=== PATIENT | male | born 1985 | race Caucasian/White ===

== ENCOUNTER 2020-02-28 21:52 | Emergency (ER) | payer OTHER ==
--- NOTE | 2020-02-28 22:19 | EDM.PDOC ---
ED HPI GENERAL MEDICAL PROBLEM - General Chief Complaint: Bite:Animal, Insect Stated Complaint: BUG BITE ON RIGHT LEG ABOVE THE KNEE Time Seen by Provider: 02/28/20 21:57 Source of Information: Reports: Patient, RN Notes Reviewed History Limitations: Reports: No Limitations - History of Present Illness INITIAL COMMENTS - FREE TEXT/NARRATIVE: Patient is a 34-year-old male who presents to the ED for evaluation of a bug bite on his right leg. Patient states that he got bitten yesterday, had a little bit of redness with surrounding inflammation at that time, but it was not painful or tender. Patient notes that over the course of yesterday and today, it has become more painful, hot to the touch, swollen and red. He has used after bite to the area but it does not seem to help much. He states the area does not itch, he would rate the pain at about a 3 out of 10, he did not take any sort of Tylenol ibuprofen for management. There is an area that is roughly plum sized of surrounding erythema, with well demarcated borders. He denies any fevers or chills, shortness of breath, cough, or any other sick-like symptoms like nausea/vomiting/diarrhea. Right Thigh Pain Score (Numeric/FACES): 3 - Related Data Allergies Allergy/AdvReac Type Severity Reaction Status Date / Time No Known Allergies Allergy Verified 02/28/20 21:58 Home Meds: Home Meds Sertraline [Zoloft] 50 mg PO DAILY 02/28/20 [History] Past Medical History Psychiatric History: Reports: Anxiety - Past Surgical History GI Surgical History: Reports: Cholecystectomy Social & Family History - Family History Family Medical History: Noncontributory - Tobacco Use Smoking Status *Q: Never Smoker Second Hand Smoke Exposure: No ED ROS GENERAL - Review of Systems Review Of Systems: Comprehensive ROS is negative, except as noted in HPI. ED EXAM, ANIMAL BITE - Physical Exam Exam: See Below Exam Limited By: No Limitations General Appearance: Alert, WD/WN, No Apparent Distress Respiratory/Chest: No Respiratory Distress, Lungs Clear, Normal Breath Sounds, No Accessory Muscle Use, Chest Non-Tender Cardiovascular: Normal Peripheral Pulses, Regular Rate, Rhythm, No Murmur Extremities: Normal Inspection (with exception of bite on right lateral leg, see skin assessment for detail), Normal Range of Motion, Normal Capillary Refill Neurological: Alert, Oriented, Normal Cognition, No Motor/Sensory Deficits Psychiatric: Normal Affect, Normal Mood Skin Exam: Warm/Dry, Other (There is an area on his right lateral lower thigh, that does appear to have a bug bite in the center, but there is a plum sized area of erythema surrounding this, questionable for cellulitis versus inflammation due to the bite itself.) Course - Vital Signs Last Recorded V/S: Last Vital Signs Temp 97.1 F 02/28/20 21:59 Pulse 65 02/28/20 21:59 Resp 16 02/28/20 21:59 BP 135/93 H 02/28/20 21:59 Pulse Ox 98 02/28/20 21:59 - Re-Assessments/Exams Free Text/Narrative Re-Assessment/Exam: 02/28/20 22:17 Patient presents to the ED for his bug bite. As this did not have any sort of inflammation or pain/tenderness yesterday, and has developed over the last day and a half, he will be started on Keflex for management, with other general recommendations for management. Departure - Departure Time of Disposition: 22:18 Disposition: Home, Self-Care 01 Condition: Good Clinical Impression: Insect bite Qualifiers: Encounter type: initial encounter Site of insect bite: thigh Laterality: right Qualified Code(s): S70.361A - Insect bite (nonvenomous), right thigh, initial encounter; W57.XXXA - Bitten or stung by nonvenomous insect and other nonvenomous arthropods, initial encounter Cellulitis Qualifiers: Site of cellulitis: extremity Site of cellulitis of extremity: lower extremity Laterality: right Qualified Code(s): L03.115 - Cellulitis of right lower limb - Discharge Information *PRESCRIPTION DRUG MONITORING PROGRAM REVIEWED*: No *COPY OF PRESCRIPTION DRUG MONITORING REPORT IN PATIENT ZAIRA: No Instructions: Cellulitis, Adult, [id number], Insect Bite, Adult, [id number] Referrals: PCP,Not In Area [Primary Care Provider] - Additional Instructions: You were evaluated in the ER today regarding a suspected skin infection/insect bite. It does appear that you have a cellulitis. Your skin was marked around the borders of the redness, if this redness should extend 2 finger widths past this initial jan, recommend you seek care for re-evaluation. You were given a antibiotic, cephalexin 500 mg twice daily x7 days. Please take as prescribed until the course is done or told otherwise by different provider. Please note that this antibiotic will take at least 48 hours to start working appropriately. You may try to use heat/ice packs to the area to help reduce pain/swelling. You may take 500 mg Tylenol or 600 mg ibuprofen every 6 hours as needed for further pain relief. Do not exceed 4000 mg Tylenol or 3200 mg ibuprofen in a 24-hour time span. Please return to the ER at any time if your symptoms change or worsen. Sepsis Event Note (ED) - Evaluation Sepsis Screening Result: No Definite Risk - Focused Exam Vital Signs: Vital Signs Temp Pulse Resp BP Pulse Ox 02/28/20 21:59 97.1 F 65 16 135/93 H 98
== END 2020-02-28 22:24 | disposition home or self-care (01) ==
LOC: JD.ED 21:52
DX: S70.361A Insect bite (nonvenomous), right thigh, initial encounter (principal); L03.115 Cellulitis of right lower limb; Z79.899 Other long term (current) drug therapy; W57.XXXA Bitten or stung by nonvenomous insect and other nonvenomous arthropods, initial encounter
CPT/HCPCS: 99282; 99283